=== PATIENT | female | born 1980 | race Caucasian/White ===

== ENCOUNTER 2022-03-22 08:50 | Outpatient (CLI) | payer BC | END 2022-03-22 08:51 | disposition home or self-care (01) | LOC: TBSIIMAG 08:50 | PROVIDERS: ATTEND Family Medicine | DX: M51.16 Intervertebral disc disorders with radiculopathy, lumbar region (principal); M47.815 Spondylosis without myelopathy or radiculopathy, thoracolumbar region; M47.26 Other spondylosis with radiculopathy, lumbar region | CPT/HCPCS: 72148 ==

== ENCOUNTER 2022-05-22 09:35 | Outpatient (CLI) | payer BC | END 2022-05-22 09:36 | disposition home or self-care (01) | LOC: SCSMRI 09:35 | PROVIDERS: ATTEND Orthopaedic Surgery | DX: M25.511 Pain in right shoulder (principal); M19.011 Primary osteoarthritis, right shoulder; M75.51 Bursitis of right shoulder; M95.8 Other specified acquired deformities of musculoskeletal system; M75.101 Unspecified rotator cuff tear or rupture of right shoulder, not specified as traumatic ==